=== PATIENT | female | born 1945 | race Caucasian/White ===

== ENCOUNTER 2017-05-03 21:59 | Inpatient (IN) | payer OTHER ==
[~2017-05-03] VITALS: Ht 152.4 cm; Wt 101.6 kg
[~2017-05-03 21:59] MED LIST: ADVAIR HFA120 INHALA IH; BUPROPION XL150 MG PO; CYMBALTA; CYMBALTA20 MG PO; Coumadin,Jantoven PO; DULOXETINE HCL20 MG PO; Desyrel PO; Feosol PO; HI B COMPLEX1 EAC1 PO; HI-B12/Foliplex PO; IRON PO; KLOR-CON M1010 MEQ PO; LASIX20 MG PO; LEVAQUIN500 MG PO; LEVOTHYROXINE; Lasix PO; Levothroid,Synthroid PO; Micro-K,K-Tab,K-Dur, PO; OxyCONTIN PO; PREDNISONE10 MG PO; PRILOSEC40 MG PO; PROVENTIL HFA6.7 GM IH; Proventil,Ventolin H IH; SYNTHROID25 MCG PO; Senokot S,Pericolace PO; TOPAMAX50 MG PO; TRAZODONE HCL50 MG PO; TRIAMTERENE W/1 EACH PO; VENTOLIN HFA18 GM IH; oxyCODONE PO
[2017-05-03 23:00] LABS: BASOPHIL COUNT 0.1 K/uL (0-0.1); EOSINOPHIL (%) 0 % (0-5); IMMATURE GRANULOCYTE (%) 2.6 % (0.0-0.7); IMMATURE GRANULOCYTE COUNT 0.8 K/uL; INSTRUMENT ABS NEUTROPHIL CT 26.5 K/uL; LYMPHOCYTE COUNT 1.5 K/uL (1.0-2.8); MEAN PLAT.VOLUME 9.6 uM^3 (9.5-12.4); MONOCYTE (%) 7.3 % (3-12); MONOCYTE COUNT 2.3 K/uL (0-0.8); NEUTROPHIL (%) 85.2 % (45-76); NEUTROPHIL COUNT 26.5 K/uL (1.8-6.4); PLATELET COUNT 292 K/uL (156-360)
[2017-05-03 23:10] LABS: CHLORIDE 107 mEq/L (99-109); POTASSIUM 3.6 mEq/L (3.7-5.4); SODIUM 140 mEq/L (136-147)
[2017-05-03 23:13] LABS: GLUCOSE 131 mg/dL (70-99)
[2017-05-03 23:14] LABS: ANION GAP 12 MEQ/L (2-14)
[2017-05-03 23:16] LABS: ALKALINE PHOSPHATASE 116 IU/L (3-129); GFR ESTIMATE (CALCULATED) > 59 mL/min/
[2017-05-03 23:17] LABS: HEMATOCRIT 39.3 % (36.0-46.0); MCH 28.4 PG (29.0-34.0); MCHC 33.3 G/DL (30.0-36.0); MCV 85.2 FL (83-99); RBC DIS.WIDTH-CV 13.2 % (11.8-14.6); RBC DIS.WIDTH-SD 41.2 % (39-53); RED BLOOD COUNT 4.61 M/uL (3.80-5.20); UREA NITROGEN (BUN) 20 mg/dL (9-23); WHITE BLOOD COUNT 31.3 K/uL (4.1-10.2)
[2017-05-04 05:34] VITALS: BP 127/57
[2017-05-04 06:00] VITALS: BP 106/83
[2017-05-04 07:03] LABS: METH RESISTANT S AUREUS PCR NEGATIVE (NEGATIVE)
[2017-05-04 07:07] LABS: PROBE CHECK PASS; SPECIMEN PROCESSING CONTROL PASS
[2017-05-04 09:00] VITALS: BP 138/72
[2017-05-04 11:58] LABS: HEMATOCRIT 37.2 % (36.0-46.0); MCH 28.3 PG (29.0-34.0); MCHC 33.1 G/DL (30.0-36.0); MCV 85.7 FL (83-99); MEAN PLAT.VOLUME 9.4 uM^3 (9.5-12.4); RBC DIS.WIDTH-CV 13.5 % (11.8-14.6); RBC DIS.WIDTH-SD 42.6 % (39-53); RED BLOOD COUNT 4.34 M/uL (3.80-5.20); WHITE BLOOD COUNT 27.5 K/uL (4.1-10.2)
[2017-05-04 12:00] VITALS: BP 130/72
[2017-05-04 12:32] LABS: ANION GAP 13 MEQ/L (2-14); CHLORIDE 106 MEQ/L (99-109); GFR ESTIMATE (CALCULATED) > 59 mL/min/; GLUCOSE 167 mg/dL (70-99); POTASSIUM 3.5 MEQ/L (3.7-5.4); SAMPLE HEMOLYSIS CHECK 0; SAMPLE ICTERIC CHECK 0; SAMPLE LIPEMIA CHECK 0; SODIUM 139 MEQ/L (136-147); UREA NITROGEN (BUN) 24 mg/dL (9-23)
[2017-05-04 12:36] LABS: ABS NEUTROPHIL COUNT 26.8; BAND NEUTROPHILS 10.2 % (0-8.0); EOSINOPHIL ABS CT 0; INSTRUMENT ABS NEUTROPHIL CT 23.1 K/uL; LYMPHOCYTES 2.6 % (15.0-45.0); SEG.NEUTROPHILS 87.2 % (46.0-76.0)
[2017-05-04 16:00] VITALS: BP 169/68
[2017-05-04 20:00] VITALS: BP 122/55
[2017-05-05] VITALS: BP 120/62
[2017-05-05 04:00] VITALS: BP 107/55
[2017-05-05 06:02] LABS: HEMATOCRIT 34.1 % (36.0-46.0); MCH 29.4 PG (29.0-34.0); MCV 86.5 FL (83-99); MEAN PLAT.VOLUME 9.8 uM^3 (9.5-12.4); PLATELET COUNT 241 K/uL (156-360); RBC DIS.WIDTH-CV 13.5 % (11.8-14.6); RBC DIS.WIDTH-SD 42.6 % (39-53); RED BLOOD COUNT 3.94 M/uL (3.80-5.20); WHITE BLOOD COUNT 23.1 K/uL (4.1-10.2)
[2017-05-05 06:33] LABS: ANION GAP 9 MEQ/L (2-14); CHLORIDE 108 MEQ/L (99-109); GFR ESTIMATE (CALCULATED) > 59 mL/min/; GLUCOSE 163 mg/dL (70-99); POTASSIUM 3.9 MEQ/L (3.7-5.4); SAMPLE HEMOLYSIS CHECK 0; SAMPLE ICTERIC CHECK 0; SAMPLE LIPEMIA CHECK 0; SODIUM 140 MEQ/L (136-147); UREA NITROGEN (BUN) 28 mg/dL (9-23)
[2017-05-05 20:00] VITALS: BP 146/72
[2017-05-06] VITALS: BP 150/67
[2017-05-06 04:00] VITALS: BP 125/66
[2017-05-06 04:31] LABS: EOSINOPHIL (%) 0 % (0-5); HEMATOCRIT 35.4 % (36.0-46.0); IMMATURE GRANULOCYTE COUNT 0.2 K/uL; INSTRUMENT ABS NEUTROPHIL CT 17.9 K/uL; LYMPHOCYTE COUNT 1.5 K/uL (1.0-2.8); MCH 28.3 PG (29.0-34.0); MCHC 32.8 G/DL (30.0-36.0); MCV 86.3 FL (83-99); MEAN PLAT.VOLUME 9.9 uM^3 (9.5-12.4); MONOCYTE (%) 5.3 % (3-12); MONOCYTE COUNT 1.1 K/uL (0-0.8); NEUTROPHIL (%) 86.2 % (45-76); NEUTROPHIL COUNT 17.9 K/uL (1.8-6.4); PLATELET COUNT 282 K/uL (156-360); RBC DIS.WIDTH-CV 13.4 % (11.8-14.6); RBC DIS.WIDTH-SD 42.3 % (39-53); WHITE BLOOD COUNT 20.7 K/uL (4.1-10.2)
[2017-05-06 04:45] LABS: CHLORIDE 111 mEq/L (99-109); POTASSIUM 4.5 mEq/L (3.7-5.4); SODIUM 143 mEq/L (136-147)
[2017-05-06 04:47] LABS: GLUCOSE 146 mg/dL (70-99)
[2017-05-06 04:49] LABS: ANION GAP 10 MEQ/L (2-14)
[2017-05-06 04:51] LABS: GFR ESTIMATE (CALCULATED) > 59 mL/min/
[2017-05-06 04:52] LABS: UREA NITROGEN (BUN) 33 mg/dL (9-23)
[2017-05-06 10:31] VITALS: BP 148/72
[2017-05-06] MEDS ORDERED: AMOX TR-K CLV1 EAC4 PO (14:03)
[2017-05-06] MEDS ORDERED: PREDNISONE5 MG PO (14:03)
[2017-05-06] MEDS ORDERED: LIDOCAINE20 MG/1 M5 PO (14:03)
== END 2017-05-06 16:05 | disposition home or self-care (01) | DRG 868 ==
LOC: EME 21:59 → EDOF 05-04 02:37 → 4WEST 05-04 02:37 → ENRESERV 05-04 02:39 → 4WEST 05-04 05:18 → ENRESERV 05-06 08:05 → 4EAST 05-06 09:47
PROVIDERS: Emergency Medicine; Hospitalist; Internal Medicine
DX: A28.0 Pasteurellosis (principal); J05.10 Acute epiglottitis without obstruction; E87.2 Acidosis; F33.9 Major depressive disorder, recurrent, unspecified; J02.8 Acute pharyngitis due to other specified organisms; E03.9 Hypothyroidism, unspecified; J44.9 Chronic obstructive pulmonary disease, unspecified; K21.9 Gastro-esophageal reflux disease without esophagitis; K22.70 Barrett's esophagus without dysplasia; I10 Essential (primary) hypertension; J45.909 Unspecified asthma, uncomplicated; G47.33 Obstructive sleep apnea (adult) (pediatric); E87.6 Hypokalemia; F41.9 Anxiety disorder, unspecified; G24.9 Dystonia, unspecified; B96.89 Other specified bacterial agents as the cause of diseases classified elsewhere; Z87.442 Personal history of urinary calculi; Z82.49 Family history of ischemic heart disease and other diseases of the circulatory system; Z83.3 Family history of diabetes mellitus
CPT/HCPCS: 70491; 71260; 80048; 80053; 81003; 83605; 85025; 85027; 87040; 87077; 87641; 87651 90; 87801; 93005; 94640; 94640 76; 94760; 94799; 99202; 99281; 99284; J0696; J1885; J2543; J2930; J3010; J3370; J3480; J7030; J7050; J7120; J7512; S0028